=== PATIENT | female | born 1980 | race Caucasian/White ===

== ENCOUNTER → 2021-05-23 | Outpatient (CLI) | payer OTHER ==
[2021-05-26 03:10] LABS: CHLAMYDIA TRACHOMATIS, NAA Negative (Negative)
== END | disposition home or self-care (01) ==
LOC: LAB SHORT 18:38
PROVIDERS: Family Medicine
DX: N76.0 Acute vaginitis (principal)
CPT/HCPCS: 87491; 87591

== ENCOUNTER → 2021-09-20 | Outpatient (CLI) | payer OTHER ==
[2021-09-20 18:34] LABS: BASOPHILS ABSOLUTE AUTO 0.03 K/mm3 (0.00-0.23); BASOPHILS PERCENT AUTO 0 % (0-2); EOSINOPHILS ABSOLUTE AUTO 0.21 K/mm3 (0.00-0.68); EOSINOPHILS PERCENT AUTO 2 % (0-6); Hematocrit 35.7 % (33.0-51.0); Hemoglobin 12.1 g/dL (11.5-16.0); IMMATURE GRAN ABSOLUTE AUTO 0.02 K/mm3 (0.00-0.10); IMMATURE GRAN PERCENT AUTO 0 % (0-1); LYMPHOCYTES ABSOLUTE AUTO 3.46 K/mm3 (0.84-5.20); LYMPHOCYTES PERCENT AUTO 40 % (21-46); MONOCYTES ABSOLUTE AUTO 0.54 K/mm3 (0.16-1.47); MONOCYTES PERCENT AUTO 6 % (4-13); Mean Corpuscular HGB 30.1 pg (26.0-34.0); Mean Corpuscular HGB Conc 33.9 g/dL (31.5-36.5); Mean Corpuscular Volume 89 fL (80-100); Mean Platelet Volume 10.4 fL (9.1-12.4); NEUTROPHILS ABSOLUTE AUTO 4.51 K/mm3 (1.96-9.15); NEUTROPHILS PERCENT AUTO 51 % (41-73); Platelet Count 429 K/mm3 (150-400); RDW Coefficient Variation 13.7 % (11.7-14.2); RDW Standard Deviation 44.6 fL (35.1-46.3); Red Blood Cell Count 4.02 M/mm3 (3.80-5.20); White Blood Cell Count 8.77 K/mm3 (4.00-11.30)
[2021-09-20 18:59] LABS: Anion Gap 8 mmol/L (6-16); Blood Urea Nitrogen 14 mg/dL (8-24); Bun/Creatinine Ratio 24.8 (12.0-20.0); CO2, Blood 27 mmol/L (21-32); Calcium, Blood 9.6 mg/dL (8.5-10.1); Chloride, Blood 103 mmol/L (98-108); Creatinine, Blood 0.57 mg/dL (0.40-1.00); Glomerular Filtration Rate >60 (60-); Glucose, Blood 108 mg/dL (70-99); Iron Serum 24 ug/dL (50-170); Percent Saturation 8.2 % (15.0-50.0); Potassium, Blood 3.7 mmol/L (3.5-5.5); Sodium, Blood 138 mmol/L (136-145); Total Iron Binding Capacity 294 ug/dL (250-450)
== END ==
LOC: LAB SHORT 17:50
PROVIDERS: Physician Assistant
DX: R53.83 Other fatigue (principal)
CPT/HCPCS: 80048; 83540; 83550; 84443; 85025

== ENCOUNTER 2021-11-18 19:05 | Emergency (ER) | payer OTHER ==
[~2021-11-18] VITALS: Ht 165.1 cm; Wt 68.0 kg
[2021-11-18 19:47] LABS: BASOPHILS ABSOLUTE AUTO 0.02 K/mm3 (0.00-0.23); BASOPHILS PERCENT AUTO 0 % (0-2); EOSINOPHILS ABSOLUTE AUTO 0.03 K/mm3 (0.00-0.68); EOSINOPHILS PERCENT AUTO 0 % (0-6); Hemoglobin 12.7 g/dL (11.5-16.0); IMMATURE GRAN ABSOLUTE AUTO 0.04 K/mm3 (0.00-0.10); IMMATURE GRAN PERCENT AUTO 0 % (0-1); LYMPHOCYTES ABSOLUTE AUTO 2.12 K/mm3 (0.84-5.20); LYMPHOCYTES PERCENT AUTO 21 % (21-46); MONOCYTES ABSOLUTE AUTO 0.63 K/mm3 (0.16-1.47); MONOCYTES PERCENT AUTO 6 % (4-13); Mean Corpuscular HGB 29.6 pg (26.0-34.0); Mean Corpuscular HGB Conc 33.4 g/dL (31.5-36.5); Mean Corpuscular Volume 89 fL (80-100); Mean Platelet Volume 10.3 fL (9.1-12.4); NEUTROPHILS ABSOLUTE AUTO 7.39 K/mm3 (1.96-9.15); NEUTROPHILS PERCENT AUTO 72 % (41-73); NRBC ABSOLUTE 0.03 K/mm3 (0.00-0.02); NRBC Auto 0.3 /100 WBC (0.0-0.2); Platelet Count 401 K/mm3 (150-400); RDW Coefficient Variation 13.3 % (11.7-14.2); RDW Standard Deviation 42.9 fL (35.1-46.3); Red Blood Cell Count 4.29 M/mm3 (3.80-5.20); White Blood Cell Count 10.23 K/mm3 (4.00-11.30)
[2021-11-18 20:05] LABS: Alanine Aminotransfer (ALT/SGP 43 U/L (12-78); Albumin, Blood 3.9 g/dL (3.4-5.0); Albumin/Globulin Ratio 1.2 (0.8-1.8); Alk Phos 73 U/L (50-136); Anion Gap 7 mmol/L (6-16); Aspartate Aminotrans (AST/SGOT 47 U/L (12-37); Bilirubin, Total 0.4 mg/dL (0.1-1.0); Blood Urea Nitrogen 8 mg/dL (8-24); Bun/Creatinine Ratio 8.8 (12.0-20.0); CO2, Blood 28 mmol/L (21-32); Calcium, Blood 9.4 mg/dL (8.5-10.1); Chloride, Blood 106 mmol/L (98-108); Creatinine, Blood 0.91 mg/dL (0.40-1.00); Ethanol (Alcohol), Blood, Med <3 mg/dL; Globulin, Blood 3.3 g/dL (2.2-4.0); Glomerular Filtration Rate >60 (60-); Glucose, Blood 127 mg/dL (70-99); Potassium, Blood 3.9 mmol/L (3.5-5.5); Sodium, Blood 141 mmol/L (136-145); Total Protein, Blood 7.2 g/dL (6.4-8.2)
[2021-11-18] MEDS ORDERED: NARCAN4 M1 (21:32)
== END 2021-11-18 22:09 | disposition home or self-care (01) ==
LOC: ER 19:05
PROVIDERS: Emergency Medicine
DX: T40.411A Poisoning by fentanyl or fentanyl analogs, accidental (unintentional), initial encounter (principal)
CPT/HCPCS: 71045; 80053; 84484; 85025; 93005; 93010; 99285-25; G0480

== ENCOUNTER → 2022-02-22 | Outpatient (CLI) | payer OTHER ==
[~2022-02-22] MED LIST: NARCAN4 M1
[2022-02-22 17:23] LABS: BASOPHILS ABSOLUTE AUTO 0.03 K/mm3 (0.00-0.23); BASOPHILS PERCENT AUTO 0 % (0-2); EOSINOPHILS ABSOLUTE AUTO 0.09 K/mm3 (0.00-0.68); EOSINOPHILS PERCENT AUTO 1 % (0-6); Hematocrit 38.2 % (33.0-51.0); Hemoglobin 12.9 g/dL (11.5-16.0); IMMATURE GRAN ABSOLUTE AUTO 0.01 K/mm3 (0.00-0.10); IMMATURE GRAN PERCENT AUTO 0 % (0-1); LYMPHOCYTES PERCENT AUTO 44 % (21-46); MONOCYTES ABSOLUTE AUTO 0.48 K/mm3 (0.16-1.47); MONOCYTES PERCENT AUTO 7 % (4-13); Mean Corpuscular HGB 30.5 pg (26.0-34.0); Mean Corpuscular HGB Conc 33.8 g/dL (31.5-36.5); Mean Corpuscular Volume 90 fL (80-100); Mean Platelet Volume 10.2 fL (9.1-12.4); NEUTROPHILS ABSOLUTE AUTO 3.18 K/mm3 (1.96-9.15); NEUTROPHILS PERCENT AUTO 47 % (41-73); Platelet Count 386 K/mm3 (150-400); RDW Coefficient Variation 14.1 % (11.7-14.2); RDW Standard Deviation 46.8 fL (35.1-46.3); Red Blood Cell Count 4.23 M/mm3 (3.80-5.20); White Blood Cell Count 6.79 K/mm3 (4.00-11.30)
[2022-02-22 17:45] LABS: Alanine Aminotransfer (ALT/SGP 25 U/L (12-78); Albumin/Globulin Ratio 1.2 (0.8-1.8); Alk Phos 64 U/L (50-136); Anion Gap 4 mmol/L (6-16); Aspartate Aminotrans (AST/SGOT 16 U/L (12-37); Bilirubin, Total 0.5 mg/dL (0.1-1.0); Blood Urea Nitrogen 8 mg/dL (8-24); CHOL/HDL RATIO 2.3; CO2, Blood 26 mmol/L (21-32); Calcium, Blood 9.2 mg/dL (8.5-10.1); Chloride, Blood 106 mmol/L (98-108); Cholesterol 160 mg/dL (50-200); Globulin, Blood 3.2 g/dL (2.2-4.0); Glucose, Blood 89 mg/dL (70-99); HDL Cholesterol 71 mg/dL (>39); Iron Serum 123 ug/dL (50-170); LDL/HDL RATIO 1.2; Low Density Lipoprotein Chol 83 mg/dL (0-110); Sodium, Blood 136 mmol/L (136-145); Total Protein, Blood 7.2 g/dL (6.4-8.2); Triglycerides 32 mg/dL (30-140); Very Low Density Lipoprot Chol 6 mg/dL (6-28)
[2022-02-22 17:50] LABS: Bun/Creatinine Ratio 11.8 (12.0-20.0); Creatinine, Blood 0.68 mg/dL (0.40-1.00); Ferritin, Serum 11 ng/mL (8-252); Glomerular Filtration Rate 114 (60-); Percent Saturation 39.2 % (15.0-50.0); Total Iron Binding Capacity 314 ug/dL (250-450)
== END | disposition home or self-care (01) ==
LOC: LAB SHORT 12:00 → LAB 12:00
PROVIDERS: Nurse Practitioner Family
DX: R53.83 Other fatigue (principal)
CPT/HCPCS: 80053; 80061; 82306; 82728; 83036; 83540; 83550; 84443; 85025

== ENCOUNTER 2022-10-24 02:59 | Emergency (ER) | payer OTHER ==
[~2022-10-24] VITALS: Ht 172.7 cm; Wt 72.6 kg
[2022-10-24 05:35] LABS: BASOPHILS ABSOLUTE AUTO 0.04 K/mm3 (0.00-0.23); BASOPHILS PERCENT AUTO 1 % (0-2); EOSINOPHILS ABSOLUTE AUTO 0.29 K/mm3 (0.00-0.68); EOSINOPHILS PERCENT AUTO 3 % (0-6); Hematocrit 33.5 % (33.0-51.0); Hemoglobin 11.1 g/dL (11.5-16.0); IMMATURE GRAN ABSOLUTE AUTO 0.03 K/mm3 (0.00-0.10); IMMATURE GRAN PERCENT AUTO 0 % (0-1); LYMPHOCYTES ABSOLUTE AUTO 2.59 K/mm3 (0.84-5.20); LYMPHOCYTES PERCENT AUTO 31 % (21-46); MONOCYTES ABSOLUTE AUTO 0.64 K/mm3 (0.16-1.47); MONOCYTES PERCENT AUTO 8 % (4-13); Mean Corpuscular HGB 28.2 pg (26.0-34.0); Mean Corpuscular HGB Conc 33.1 g/dL (31.5-36.5); Mean Corpuscular Volume 85 fL (80-100); Mean Platelet Volume 9.6 fL (9.1-12.4); NEUTROPHILS ABSOLUTE AUTO 4.82 K/mm3 (1.96-9.15); NEUTROPHILS PERCENT AUTO 57 % (41-73); Platelet Count 615 K/mm3 (150-400); RDW Coefficient Variation 14.2 % (11.7-14.2); RDW Standard Deviation 44.1 fL (35.1-46.3); Red Blood Cell Count 3.94 M/mm3 (3.80-5.20); White Blood Cell Count 8.41 K/mm3 (4.00-11.30)
[2022-10-24 06:03] LABS: Albumin, Blood 3.3 g/dL (3.4-5.0); Albumin/Globulin Ratio 0.8 (0.8-1.8); Bilirubin, Total 0.3 mg/dL (0.1-1.0); Bun/Creatinine Ratio 27.2 (12.0-20.0); Calcium, Blood 9.1 mg/dL (8.5-10.1); Creatinine, Blood 0.59 mg/dL (0.40-1.00); Globulin, Blood 4.3 g/dL (2.2-4.0); Total Protein, Blood 7.6 g/dL (6.4-8.2)
== END 2022-10-24 05:55 | disposition home or self-care (01) ==
LOC: ER 02:59
PROVIDERS: Student in an Organized Health Care Education/Training Program
DX: R10.9 Unspecified abdominal pain (principal); F17.210 Nicotine dependence, cigarettes, uncomplicated; Z96.0 Presence of urogenital implants
CPT/HCPCS: 36415; 80053; 85025; J3360; J7030

== ENCOUNTER 2023-04-11 15:03 | Emergency (ER) | payer OTHER ==
[~2023-04-11] VITALS: Ht 172.7 cm; Wt 72.6 kg
[2023-04-11 15:47] LABS: BASOPHILS ABSOLUTE AUTO 0.03 K/mm3 (0.00-0.23); BASOPHILS PERCENT AUTO 0 % (0-2); EOSINOPHILS ABSOLUTE AUTO 0.18 K/mm3 (0.00-0.68); EOSINOPHILS PERCENT AUTO 1 % (0-6); Hematocrit 30.6 % (33.0-51.0); Hemoglobin 10.1 g/dL (11.5-16.0); IMMATURE GRAN ABSOLUTE AUTO 0.05 K/mm3 (0.00-0.10); IMMATURE GRAN PERCENT AUTO 0 % (0-1); LYMPHOCYTES ABSOLUTE AUTO 2.15 K/mm3 (0.84-5.20); LYMPHOCYTES PERCENT AUTO 17 % (21-46); MONOCYTES ABSOLUTE AUTO 1.45 K/mm3 (0.16-1.47); MONOCYTES PERCENT AUTO 12 % (4-13); Mean Corpuscular HGB 27.6 pg (26.0-34.0); Mean Corpuscular Volume 84 fL (80-100); NEUTROPHILS PERCENT AUTO 69 % (41-73); Platelet Count 289 K/mm3 (150-400); RDW Coefficient Variation 15.8 % (11.7-14.2); RDW Standard Deviation 48.6 fL (35.1-46.3); Red Blood Cell Count 3.66 M/mm3 (3.80-5.20); White Blood Cell Count 12.46 K/mm3 (4.00-11.30)
[2023-04-11 16:08] LABS: Albumin, Blood 2.9 g/dL (3.4-5.0); Albumin/Globulin Ratio 0.7 (0.8-1.8); Bilirubin, Total 0.3 mg/dL (0.1-1.0); Bun/Creatinine Ratio 14.3 (12.0-20.0); Calcium, Blood 8.8 mg/dL (8.5-10.1); Creatinine, Blood 0.7 mg/dL (0.40-1.00); Globulin, Blood 3.9 g/dL (2.2-4.0); Potassium, Blood 3.2 mmol/L (3.5-5.5); Total Protein, Blood 6.8 g/dL (6.4-8.2)
[2023-04-11 18:31] LABS: Source, Urine Clean Catch
[2023-04-11] MEDS ORDERED: CEFD300 PO (18:47)
[2023-04-11 18:52] LABS: Appearance, Urine Cloudy (Clear); Bilirubin, Urine Neg (Neg); Blood, Urine 3+ (Neg); Color, Urine Yellow (P-Yellow); Glucose Qualitative, Urine Neg (Neg); Ketones, Urine Neg (Neg); Leukocyte Esterase, Urine 3+ (Neg); Nitrite, Urine Pos (Neg); Protein, Urine 2+ (Neg); Specific Gravity, Urine 1.015 (1.003-1.022); Urobilinogen, Urine NORM (Normal)
[2023-04-11 19:03] LABS: Bacteria Many /hpf; Squamous Epithelial Cells Rare /hpf (Few); Transitional Epithelial Cells Rare /hpf (0-Rare); White Blood Cells, Urine TNTC /hpf (0-5)
[2023-04-11 19:10] VITALS: BP 124/49
== END 2023-04-11 19:30 | disposition home or self-care (01) ==
LOC: ER 15:03
PROVIDERS: Physician Assistant
DX: N12 Tubulo-interstitial nephritis, not specified as acute or chronic (principal); F17.210 Nicotine dependence, cigarettes, uncomplicated; Z79.899 Other long term (current) drug therapy
CPT/HCPCS: 74177; 80053; 81001; 85025; 87086; 87147; 96374; 99284-25; A9270; J0696; Q9967

== ENCOUNTER 2023-05-23 10:56 | Inpatient (IN) | payer OTHER ==
[~2023-05-23] VITALS: Ht 172.7 cm; Wt 75.5 kg
[~2023-05-23 10:56] MED LIST changes: +CEFD300 PO
[2023-05-23 12:29] LABS: Source, Urine Clean Catch
[2023-05-23 12:40] LABS: Appearance, Urine Cloudy (Clear); Bilirubin, Urine Neg (Neg); Blood, Urine 5+ (Neg); Color, Urine Yellow (P-Yellow); Glucose Qualitative, Urine Neg (Neg); Ketones, Urine Neg (Neg); Leukocyte Esterase, Urine 3+ (Neg); Nitrite, Urine Pos (Neg); Protein, Urine 3+ (Neg); Specific Gravity, Urine 1.015 (1.003-1.022); Urobilinogen, Urine NORM (Normal)
[2023-05-23 12:48] LABS: Bacteria Many /hpf; Red Blood Cells, Urine 50-100 /hpf (0-2); Squamous Epithelial Cells Rare /hpf (Few); White Blood Cells, Urine TNTC /hpf (0-5)
[2023-05-23 13:10] LABS: BASOPHILS ABSOLUTE AUTO 0.03 K/mm3 (0.00-0.23); BASOPHILS PERCENT AUTO 0 % (0-2); EOSINOPHILS ABSOLUTE AUTO 0.18 K/mm3 (0.00-0.68); EOSINOPHILS PERCENT AUTO 2 % (0-6); Hematocrit 33.1 % (33.0-51.0); Hemoglobin 10.7 g/dL (11.5-16.0); IMMATURE GRAN ABSOLUTE AUTO 0.03 K/mm3 (0.00-0.10); IMMATURE GRAN PERCENT AUTO 0 % (0-1); LYMPHOCYTES ABSOLUTE AUTO 2.71 K/mm3 (0.84-5.20); LYMPHOCYTES PERCENT AUTO 33 % (21-46); MONOCYTES ABSOLUTE AUTO 0.36 K/mm3 (0.16-1.47); MONOCYTES PERCENT AUTO 4 % (4-13); Mean Corpuscular HGB 27.9 pg (26.0-34.0); Mean Corpuscular HGB Conc 32.3 g/dL (31.5-36.5); Mean Corpuscular Volume 86 fL (80-100); NEUTROPHILS ABSOLUTE AUTO 4.98 K/mm3 (1.96-9.15); NEUTROPHILS PERCENT AUTO 60 % (41-73); Platelet Count 392 K/mm3 (150-400); RDW Coefficient Variation 15.2 % (11.7-14.2); RDW Standard Deviation 48.3 fL (35.1-46.3); Red Blood Cell Count 3.83 M/mm3 (3.80-5.20); White Blood Cell Count 8.29 K/mm3 (4.00-11.30)
[2023-05-23 13:34] LABS: Calcium, Blood 8.6 mg/dL (8.5-10.1); Creatinine, Blood 0.71 mg/dL (0.40-1.00); Potassium, Blood 3.9 mmol/L (3.5-5.5)
[2023-05-23 19:20] VITALS: BP 145/84
[2023-05-23 19:37] LABS: Hematocrit 33.3 % (33.0-51.0); Hemoglobin 10.7 g/dL (11.5-16.0); Mean Corpuscular HGB 27.9 pg (26.0-34.0); Mean Corpuscular HGB Conc 32.1 g/dL (31.5-36.5); Mean Corpuscular Volume 87 fL (80-100); Platelet Count 398 K/mm3 (150-400); RDW Coefficient Variation 15.5 % (11.7-14.2); Red Blood Cell Count 3.84 M/mm3 (3.80-5.20); White Blood Cell Count 7.81 K/mm3 (4.00-11.30)
[2023-05-23 19:43] VITALS: BP 145/84
[2023-05-23 22:42] LABS: Source, Urine Nephrostomy
[2023-05-23 23:01] LABS: Appearance, Urine Turbid (Clear); Bilirubin, Urine Neg (Neg); Blood, Urine 5+ (Neg); Color, Urine Red (P-Yellow); Glucose Qualitative, Urine Neg (Neg); Ketones, Urine 1+ (Neg); Leukocyte Esterase, Urine 3+ (Neg); Nitrite, Urine Neg (Neg); Protein, Urine 4+ (Neg); Urobilinogen, Urine NORM (Normal); pH, Urine 6.5 (5.0-8.0)
[2023-05-23 23:23] LABS: Bacteria Few /hpf; Red Blood Cells, Urine TNTC /hpf (0-2); Squamous Epithelial Cells Not Seen /hpf (Few); White Blood Cells, Urine 25-50 /hpf (0-5)
[2023-05-24 03:12] VITALS: BP 133/78
[2023-05-24 04:42] VITALS: BP 124/73
[2023-05-24 05:12] LABS: Hematocrit 28.6 % (33.0-51.0); Hemoglobin 9.3 g/dL (11.5-16.0); Mean Corpuscular HGB 28.4 pg (26.0-34.0); Mean Corpuscular HGB Conc 32.5 g/dL (31.5-36.5); Mean Corpuscular Volume 88 fL (80-100); Mean Platelet Volume 10.3 fL (9.1-12.4); Platelet Count 324 K/mm3 (150-400); RDW Coefficient Variation 15.6 % (11.7-14.2); RDW Standard Deviation 50.2 fL (35.1-46.3); Red Blood Cell Count 3.27 M/mm3 (3.80-5.20); White Blood Cell Count 9.18 K/mm3 (4.00-11.30)
--- NOTE | 2023-05-24 05:14 | NUR ---
SUMMARY PT ADMITTED FOR NEPHROSTOMY TUBE PLACEMENT, PT ARRIVED RIGHT AT SHIFT CHANGE, PT ALERT AND ORIENTED, INDEPENDENT IN THE ROOM, ORIENTED PT TO ROOM AND CALL SYSTEM, PT CRYING IN PAIN UPON ARRIVAL, MED PER EMAR FOR PAIN AND NAUSEA, PT WITH INCREASING PAIN T/O THE NIGHT, CALL TO ATTENDING AND NEW ORDERS RECIEVED, PT MED T/O THE NIGHT FOR PAIN, HEATING PAD PROVIDED WELL, NEPHROSTOMY TUBE TO R FLANK, SITE IS DRY AND INTACT, DRAINAGE IS MAROON TO LIGHT PINK, PT WITH HIGH ANXIETY, PT'S SPOUSE STAYED AND ASSISTED WITH DECREASING PT'S ANXIETY, VSS, WILL CONTINUE TO MONITOR
[2023-05-24 05:38] LABS: Bun/Creatinine Ratio 16.5 (12.0-20.0); Calcium, Blood 8.2 mg/dL (8.5-10.1); Creatinine, Blood 0.79 mg/dL (0.40-1.00); Potassium, Blood 3.6 mmol/L (3.5-5.5)
[2023-05-24 09:40] LABS: Source, Urine Clean Catch
[2023-05-24 10:01] LABS: Appearance, Urine Cloudy (Clear); Bilirubin, Urine Neg (Neg); Blood, Urine 5+ (Neg); Color, Urine Yellow (P-Yellow); Glucose Qualitative, Urine Neg (Neg); Ketones, Urine Neg (Neg); Leukocyte Esterase, Urine 3+ (Neg); Nitrite, Urine Pos (Neg); Protein, Urine 3+ (Neg); Specific Gravity, Urine 1.025 (1.003-1.022); Urobilinogen, Urine NORM (Normal)
[2023-05-24 10:09] LABS: Bacteria Many /hpf; Red Blood Cells, Urine 25-50 /hpf (0-2); Squamous Epithelial Cells Few /hpf (Few); White Blood Cells, Urine TNTC /hpf (0-5)
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
--- NOTE | 2023-05-24 14:26 | NUR ---
11:20- PT HAS BEEN MISSING FROM THE FLOOR FOR 20 MINUTES NOW. ALL CHARGE NURSES AND CC NOTIFIED.
--- NOTE | 2023-05-24 14:27 | NUR ---
11:25- PT CAME BACK TO THE FLOOR. PT WOULD NOT ANSWER WHERE SHE HAD GONE. THIS RN AND PATRICIA WENT TO PT'S ROOM TO TELL HER SHE WAS CONSIDERED A HIGH RISK AND REQUIRED A 1:1 SITTER NOW. PT BECAME EXTREMELY AGGITATED AND STARTED SCREAMING AT STAFF. PT WAS CURSING AND STATED SHE WANTED TO LEAVE AMA IF SHE WAS GOING TO HAVE A PREPARATION ROOM WORKER. NANCY NOTIFIED AND NANCY SPOKE WITH PT INFORMING HER OF HOSPITAL NO SMOKING POLICY. PT DECIDED TO STAY WITH A SITTER AND STATED, "I CAN'T LEAVE I NEED MY PAIN MEDS." NANCY STAYED WITH PT UNTIL SITTER CAME TO FLOOR.
[2023-05-24 15:28] VITALS: BP 163/94
--- NOTE | 2023-05-24 18:12 | NUR ---
1700- RN EDUCATED PT THAT IF SHE LEFT THE FLOOR TO SMOKE WITH A SITTER THAT WOULD BE CONSIDERED LEAVING AMA DUE TO PUTTING THE SITTER IN DANGER. PT GAVE VERBAL UNDERSTANDING OF EDUCATION ALTHOUGH PT WAS IRRITATED AT THIS INFORMATION GIVEN.
--- NOTE | 2023-05-24 18:14 | NUR ---
1809- THIS RN CALLED DR. BROWN AND INFORMED HER THAT PT BELIEVES, "SOMETHING IS NOT RIGHT." PT HAS COMPLAINTS THAT HER ABDOMEN IS SWOLLEN, RIGHT UPPER AND LOWER FLANK PAIN RADIATING TO THE FRONT RIGHT QUADRANTS, AND PT HAS SCANT BLOOD AFTER SHE WIPES PT EXAPLINS. PT HAS BSX4, BLOOD LOOKS NORMAL FOR POST NEPH TUBE PLACEMENT, AND PAIN EXPECTED WELL. DR. CASAREZ ALSO INFORMED OF PT'S COMPLAINTS. BOTH MDS SAID TO CONTINUE TO MONITOR. DR. BROWN GAVE VERBAL TO ORDER COLACE 100MG BID.
[2023-05-24 19:44] VITALS: BP 122/70
[2023-05-25 03:01] VITALS: BP 108/67
--- NOTE | 2023-05-25 05:01 | NUR ---
SUMMARY PT RESTING QUIETLY, WAKES EASILY, UP INDEP IN THE ROOM, PT MED PER EMAR FOR PAIN FREQUENTLY, 1:[address] FOR HIGH IGNITION RISK, PT VERY TALKATIVE AND EMOTIONAL AT THE START OF THE SHIFT, COOPERATIVE WITH CARE, NEPHROSTOMY TUBE TO THE R FLANK, SITE IS CLEAN AND DRY, DRAINING PINK URINE, VSS, WILL CONT TO MONITOR
[2023-05-25 06:04] LABS: BASOPHILS ABSOLUTE AUTO 0.02 K/mm3 (0.00-0.23); BASOPHILS PERCENT AUTO 0 % (0-2); EOSINOPHILS PERCENT AUTO 3 % (0-6); Hematocrit 30.5 % (33.0-51.0); Hemoglobin 9.6 g/dL (11.5-16.0); IMMATURE GRAN ABSOLUTE AUTO 0.03 K/mm3 (0.00-0.10); IMMATURE GRAN PERCENT AUTO 0 % (0-1); LYMPHOCYTES ABSOLUTE AUTO 2.99 K/mm3 (0.84-5.20); LYMPHOCYTES PERCENT AUTO 37 % (21-46); MONOCYTES ABSOLUTE AUTO 0.67 K/mm3 (0.16-1.47); MONOCYTES PERCENT AUTO 8 % (4-13); Mean Corpuscular HGB 27.9 pg (26.0-34.0); Mean Corpuscular HGB Conc 31.5 g/dL (31.5-36.5); Mean Corpuscular Volume 89 fL (80-100); Mean Platelet Volume 10.2 fL (9.1-12.4); NEUTROPHILS ABSOLUTE AUTO 4.17 K/mm3 (1.96-9.15); NEUTROPHILS PERCENT AUTO 52 % (41-73); Platelet Count 333 K/mm3 (150-400); RDW Coefficient Variation 15.7 % (11.7-14.2); RDW Standard Deviation 50.8 fL (35.1-46.3); Red Blood Cell Count 3.44 M/mm3 (3.80-5.20); White Blood Cell Count 8.08 K/mm3 (4.00-11.30)
[2023-05-25 06:33] LABS: Anion Gap 4 mmol/L (6-16); Blood Urea Nitrogen 16 mg/dL (8-24); Bun/Creatinine Ratio 19.2 (12.0-20.0); CO2, Blood 27 mmol/L (21-32); Calcium, Blood 8.7 mg/dL (8.5-10.1); Chloride, Blood 110 mmol/L (98-108); Creatinine, Blood 0.83 mg/dL (0.40-1.00); Glomerular Filtration Rate 91 (60-); Glucose, Blood 104 mg/dL (70-99); Phosphorus, Blood 4.2 mg/dL (2.5-4.9); Potassium, Blood 4.3 mmol/L (3.5-5.5); Sodium, Blood 141 mmol/L (136-145)
[2023-05-25 07:30] VITALS: BP 117/71
[2023-05-25] MEDS ORDERED: DOCU100 PO ×2 (09:36)
[2023-05-25] MEDS ORDERED: MIRALAX17 GM PO ×2 (09:37)
[2023-05-25] MEDS ORDERED: PROBIOTIC ACID1 EAC7 PO ×2 (09:38)
[2023-05-25] MEDS ORDERED: CEPH500 PO ×2 (09:39)
[2023-05-25] MEDS ORDERED: TRAM50 PO ×2 (09:40)
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
== END 2023-05-25 11:34 | disposition home or self-care (01) | DRG 699 ==
LOC: ER 10:56 → SURS 10:57 → MEDS 16:34 → ENPENDDIS 05-25 09:02 → MEDS 05-25 11:34
PROVIDERS: Family Medicine; Internal Medicine; Physician Assistant; Student in an Organized Health Care Education/Training Program; ADMIT Radiology Diagnostic Radiology
PROC: 0T9330Z Drainage of Right Kidney Pelvis with Drainage Device, Percutaneous Approach (ICD-10-PCS; principal; 2023-05-23)
PROC: BT41ZZZ Ultrasonography of Right Kidney (ICD-10-PCS; 2023-05-23)
PROC: BT111ZZ Fluoroscopy of Right Kidney using Low Osmolar Contrast (ICD-10-PCS; 2023-05-23)
DX: T83.592A Infection and inflammatory reaction due to indwelling ureteral stent, initial encounter (principal); N13.6 Pyonephrosis; T83.112A Breakdown (mechanical) of indwelling ureteral stent, initial encounter; T83.85XA Stenosis due to genitourinary prosthetic devices, implants and grafts, initial encounter; Y83.8 Other surgical procedures as the cause of abnormal reaction of the patient, or of later complication, without mention of misadventure at the time of the procedure; F17.210 Nicotine dependence, cigarettes, uncomplicated; I10 Essential (primary) hypertension; R31.9 Hematuria, unspecified; K59.00 Constipation, unspecified; F41.9 Anxiety disorder, unspecified; Z88.8 Allergy status to other drugs, medicaments and biological substances; Z91.018 Allergy to other foods; Z87.442 Personal history of urinary calculi; Z90.49 Acquired absence of other specified parts of digestive tract; B95.4 Other streptococcus as the cause of diseases classified elsewhere
CPT/HCPCS: 36415; 74177; 76770; 76937; 80048; 80069; 81001; 85025; 85027; 87086; 96361; 96365-59; 96366; 96372-59; 96375; 96376; 99152; 99153; 99285-25; A9270; C1769; C1894; J0696; J1170; J1885; J2250; J2270; J2405; J3010; J7030; J7040; Q9967

== ENCOUNTER 2023-05-26 08:20 | Emergency (ER) | payer OTHER ==
[~2023-05-26] VITALS: Ht 172.7 cm; Wt 74.4 kg
[~2023-05-26 08:20] MED LIST changes: +CEPH500 PO; +DOCU100 PO; +MIRALAX17 GM PO; +PROBIOTIC ACID1 EAC7 PO; +TRAM50 PO
[2023-05-26 10:20] VITALS: BP 127/69
== END 2023-05-26 10:28 | disposition home or self-care (01) ==
LOC: ER 08:20
DX: N39.0 Urinary tract infection, site not specified (principal); K59.00 Constipation, unspecified; F17.210 Nicotine dependence, cigarettes, uncomplicated; Z88.6 Allergy status to analgesic agent; Z88.8 Allergy status to other drugs, medicaments and biological substances; Z91.018 Allergy to other foods
CPT/HCPCS: 96365; 96375; 99283-25; A9270; J0696; J1885; J2405; J3010

== ENCOUNTER 2023-05-28 16:18 | Emergency (ER) | payer OTHER ==
[~2023-05-28] VITALS: Ht 172.7 cm; Wt 72.6 kg
[2023-05-28 16:57] LABS: BASOPHILS ABSOLUTE AUTO 0.02 K/mm3 (0.00-0.23); BASOPHILS PERCENT AUTO 0 % (0-2); EOSINOPHILS ABSOLUTE AUTO 0.15 K/mm3 (0.00-0.68); EOSINOPHILS PERCENT AUTO 1 % (0-6); Hemoglobin 11.4 g/dL (11.5-16.0); IMMATURE GRAN ABSOLUTE AUTO 0.03 K/mm3 (0.00-0.10); IMMATURE GRAN PERCENT AUTO 0 % (0-1); LYMPHOCYTES ABSOLUTE AUTO 2.34 K/mm3 (0.84-5.20); LYMPHOCYTES PERCENT AUTO 17 % (21-46); MONOCYTES ABSOLUTE AUTO 0.66 K/mm3 (0.16-1.47); MONOCYTES PERCENT AUTO 5 % (4-13); Mean Corpuscular HGB 28.1 pg (26.0-34.0); Mean Corpuscular HGB Conc 32.6 g/dL (31.5-36.5); Mean Corpuscular Volume 86 fL (80-100); Mean Platelet Volume 9.8 fL (9.1-12.4); NEUTROPHILS ABSOLUTE AUTO 10.47 K/mm3 (1.96-9.15); NEUTROPHILS PERCENT AUTO 77 % (41-73); Platelet Count 537 K/mm3 (150-400); RDW Coefficient Variation 15.4 % (11.7-14.2); RDW Standard Deviation 48.4 fL (35.1-46.3); Red Blood Cell Count 4.06 M/mm3 (3.80-5.20); White Blood Cell Count 13.67 K/mm3 (4.00-11.30)
[2023-05-28 17:04] LABS: Source, Urine Clean Catch
[2023-05-28 17:23] LABS: Appearance, Urine Hazy (Clear); Bilirubin, Urine Neg (Neg); Blood, Urine 4+ (Neg); Color, Urine Yellow (P-Yellow); Glucose Qualitative, Urine Neg (Neg); Ketones, Urine Neg (Neg); Leukocyte Esterase, Urine 3+ (Neg); Nitrite, Urine Neg (Neg); Protein, Urine 2+ (Neg); Urobilinogen, Urine NORM (Normal)
[2023-05-28 17:27] LABS: Albumin, Blood 4.4 g/dL (3.4-5.0); Albumin/Globulin Ratio 1.5 (0.8-1.8); Bilirubin, Total 0.3 mg/dL (0.1-1.0); Bun/Creatinine Ratio 16.7 (12.0-20.0); Creatinine, Blood 0.66 mg/dL (0.40-1.00); Potassium, Blood 3.7 mmol/L (3.5-5.5); Total Protein, Blood 7.4 g/dL (6.4-8.2)
[2023-05-28 18:06] LABS: Bacteria Many /hpf; Mucus Light (0-Heavy); Red Blood Cells, Urine 50-100 /hpf (0-2); Squamous Epithelial Cells Mod /hpf (Few); White Blood Cells, Urine TNTC /hpf (0-5)
[2023-05-28 18:12] LABS: Trichomonas Rare /hpf
[2023-05-28 22:00] VITALS: BP 131/66
[2023-05-28 22:24] LABS: Source, Urine Straight Cath
[2023-05-28 22:27] LABS: Bilirubin, Urine Neg (Neg); Blood, Urine 4+ (Neg); Glucose Qualitative, Urine Neg (Neg); Ketones, Urine Neg (Neg); Leukocyte Esterase, Urine 3+ (Neg); Nitrite, Urine Neg (Neg); Protein, Urine 3+ (Neg); Urobilinogen, Urine NORM (Normal); pH, Urine 6.5 (5.0-8.0)
[2023-05-28 22:28] LABS: Appearance, Urine Hazy (Clear); Color, Urine Yellow (P-Yellow)
[2023-05-28 22:34] LABS: Bacteria Mod /hpf; Mucus Light (0-Heavy); Squamous Epithelial Cells Few /hpf (Few); White Blood Cells, Urine 50-100 /hpf (0-5)
[2023-05-29] MEDS ORDERED: TRAM50 PO (10:56)
== END 2023-05-29 11:10 | disposition home or self-care (01) ==
LOC: ER 16:18
PROVIDERS: Physician Assistant; Student in an Organized Health Care Education/Training Program
DX: N12 Tubulo-interstitial nephritis, not specified as acute or chronic (principal); F17.200 Nicotine dependence, unspecified, uncomplicated; Z88.6 Allergy status to analgesic agent; Z88.8 Allergy status to other drugs, medicaments and biological substances; Z79.899 Other long term (current) drug therapy
CPT/HCPCS: 74177; 80053; 81001; 82947; 83690; 85025; 87086; 96361; 96365; 96375; 96376; 99284-25; J0696; J1885; J2270; J2405; J7030; Q9967

== ENCOUNTER 2023-06-04 14:39 | Emergency (ER) | payer OTHER ==
[~2023-06-04] VITALS: Ht 170.2 cm; Wt 63.5 kg
[~2023-06-04 14:39] MED LIST changes: -BUPRENORPHINE-1 EACH SL; -METH5; -SUBOXONE 8 MG-1 EACH SL
[2023-06-04 14:45] VITALS: BP 155/100
[2023-06-04] MEDS ORDERED: SUBOXONE 8 MG-1 EACH SL (14:52)
[2023-06-05] MEDS ORDERED: BUPRENORPHINE-1 EACH SL (01:23)
[2023-06-05] MEDS ORDERED: METH5 (01:23)
== END 2023-06-04 14:53 | disposition home or self-care (01) ==
LOC: ER 14:39
DX: F11.90 Opioid use, unspecified, uncomplicated (principal); F17.200 Nicotine dependence, unspecified, uncomplicated; Z79.899 Other long term (current) drug therapy; Z88.6 Allergy status to analgesic agent; Z88.8 Allergy status to other drugs, medicaments and biological substances; Z91.018 Allergy to other foods
CPT/HCPCS: 99283; A9270

== ENCOUNTER → 2023-06-04 | Outpatient (CLI) | payer OTHER ==
[~2023-06-04] MED LIST changes: +BUPRENORPHINE-1 EACH SL; +METH5; +SUBOXONE 8 MG-1 EACH SL
[2023-06-06 01:10] LABS: CHLAMYDIA TRACHOMATIS, NAA Negative (Negative)
== END ==
LOC: LAB SHORT 11:30 → LAB 11:30
PROVIDERS: Family Medicine
DX: Z11.3 Encounter for screening for infections with a predominantly sexual mode of transmission (principal)
CPT/HCPCS: 87491; 87591

== ENCOUNTER 2023-06-05 01:14 | Emergency (ER) | payer OTHER ==
[~2023-06-05] VITALS: Ht 172.7 cm; Wt 72.6 kg
[~2023-06-05 01:14] MED LIST changes: +SUBOXONE 8 MG-1 EACH SL
[2023-06-05] MEDS ORDERED: BUPRENORPHINE-1 EACH SL (01:23)
[2023-06-05] MEDS ORDERED: METH5 (01:23)
[2023-06-05 01:50] VITALS: BP 132/89
== END 2023-06-05 02:15 | disposition home or self-care (01) ==
LOC: ER 01:14
DX: Z43.6 Encounter for attention to other artificial openings of urinary tract (principal); F17.200 Nicotine dependence, unspecified, uncomplicated
CPT/HCPCS: 99283

== ENCOUNTER 2023-06-05 18:56 | Emergency (ER) | payer OTHER ==
[~2023-06-05] VITALS: Ht 172.7 cm; Wt 72.6 kg
[~2023-06-05 18:56] MED LIST changes: +BUPRENORPHINE-1 EACH SL; +METH5
[2023-06-05 19:14] VITALS: BP 129/84
[2023-06-05 19:39] LABS: BASOPHILS ABSOLUTE AUTO 0.04 K/mm3 (0.00-0.23); BASOPHILS PERCENT AUTO 0 % (0-2); EOSINOPHILS ABSOLUTE AUTO 0.45 K/mm3 (0.00-0.68); EOSINOPHILS PERCENT AUTO 5 % (0-6); Hematocrit 31.5 % (33.0-51.0); Hemoglobin 10.5 g/dL (11.5-16.0); IMMATURE GRAN ABSOLUTE AUTO 0.03 K/mm3 (0.00-0.10); IMMATURE GRAN PERCENT AUTO 0 % (0-1); LYMPHOCYTES ABSOLUTE AUTO 3.57 K/mm3 (0.84-5.20); LYMPHOCYTES PERCENT AUTO 37 % (21-46); MONOCYTES ABSOLUTE AUTO 0.72 K/mm3 (0.16-1.47); MONOCYTES PERCENT AUTO 8 % (4-13); Mean Corpuscular HGB 28.6 pg (26.0-34.0); Mean Corpuscular HGB Conc 33.3 g/dL (31.5-36.5); Mean Corpuscular Volume 86 fL (80-100); Mean Platelet Volume 9.9 fL (9.1-12.4); NEUTROPHILS ABSOLUTE AUTO 4.79 K/mm3 (1.96-9.15); NEUTROPHILS PERCENT AUTO 50 % (41-73); Platelet Count 467 K/mm3 (150-400); RDW Coefficient Variation 14.4 % (11.7-14.2); RDW Standard Deviation 45.7 fL (35.1-46.3); Red Blood Cell Count 3.67 M/mm3 (3.80-5.20)
[2023-06-05 20:19] LABS: Influenza A, PCR NEGATIVE (NEGATIVE); Influenza B, PCR NEGATIVE (NEGATIVE); Resp Syncytial Virus, PCR NEGATIVE (NEGATIVE); SARS-Cov-2 (COVID-19) PCR, MMC NEGATIVE (NEGATIVE)
== END 2023-06-05 20:57 | disposition left against medical advice (07) ==
LOC: ER 18:56
PROVIDERS: Student in an Organized Health Care Education/Training Program
DX: R07.9 Chest pain, unspecified (principal); R51.9 Headache, unspecified; Z53.21 Procedure and treatment not carried out due to patient leaving prior to being seen by health care provider
CPT/HCPCS: 0241U; 71046; 83690; 84484; 85025; 93005; 93010; 99283-25

== ENCOUNTER 2023-06-17 10:52 | Emergency (ER) | payer OTHER ==
[~2023-06-17] VITALS: Ht 172.7 cm; Wt 72.6 kg
[2023-06-17] MEDS ORDERED: PREGABALIN75 MG PO (11:00)
[2023-06-17] MEDS ORDERED: OXYB5 PO (11:00)
[2023-06-17] MEDS ORDERED: TAMSULOSIN HCL0.4 M1 PO (11:01)
[2023-06-17 11:29] LABS: BASOPHILS ABSOLUTE AUTO 0.03 K/mm3 (0.00-0.23); BASOPHILS PERCENT AUTO 1 % (0-2); EOSINOPHILS PERCENT AUTO 4 % (0-6); Hematocrit 32.1 % (33.0-51.0); Hemoglobin 10.5 g/dL (11.5-16.0); IMMATURE GRAN ABSOLUTE AUTO 0.01 K/mm3 (0.00-0.10); IMMATURE GRAN PERCENT AUTO 0 % (0-1); LYMPHOCYTES ABSOLUTE AUTO 1.79 K/mm3 (0.84-5.20); LYMPHOCYTES PERCENT AUTO 35 % (21-46); MONOCYTES ABSOLUTE AUTO 0.47 K/mm3 (0.16-1.47); MONOCYTES PERCENT AUTO 9 % (4-13); Mean Corpuscular HGB 27.9 pg (26.0-34.0); Mean Corpuscular HGB Conc 32.7 g/dL (31.5-36.5); Mean Corpuscular Volume 85 fL (80-100); Mean Platelet Volume 10.4 fL (9.1-12.4); NEUTROPHILS ABSOLUTE AUTO 2.59 K/mm3 (1.96-9.15); NEUTROPHILS PERCENT AUTO 51 % (41-73); Platelet Count 383 K/mm3 (150-400); RDW Coefficient Variation 14.1 % (11.7-14.2); RDW Standard Deviation 44.1 fL (35.1-46.3); Red Blood Cell Count 3.76 M/mm3 (3.80-5.20); White Blood Cell Count 5.09 K/mm3 (4.00-11.30)
[2023-06-17 11:38] LABS: Calcium, Blood 8.6 mg/dL (8.5-10.1); Creatinine, Blood 0.71 mg/dL (0.40-1.00); Potassium, Blood 4.3 mmol/L (3.5-5.5)
[2023-06-17 14:00] VITALS: BP 144/84
[2023-06-17] MEDS ORDERED: Percocet 5-3251 EACH PO (14:03)
[2023-06-17] MEDS ORDERED: Cipro250 MG PO (14:03)
[2023-06-17] MEDS ORDERED: PROM25 PO (14:03)
== END 2023-06-17 14:15 | disposition home or self-care (01) ==
LOC: ER 10:52
PROVIDERS: Emergency Medicine
DX: T83.89XA Other specified complication of genitourinary prosthetic devices, implants and grafts, initial encounter (principal); N21.0 Calculus in bladder; N13.30 Unspecified hydronephrosis; F17.200 Nicotine dependence, unspecified, uncomplicated; Z88.8 Allergy status to other drugs, medicaments and biological substances; Z79.899 Other long term (current) drug therapy
CPT/HCPCS: 74018; 76770; 80048; 85025; 96361; 96374; 96375; 96376; 99284-25; A9270; J1170; J2405; J7030

== ENCOUNTER 2023-06-18 21:57 | Emergency (ER) | payer OTHER ==
[~2023-06-18] VITALS: Ht 172.7 cm; Wt 74.8 kg
[~2023-06-18 21:57] MED LIST changes: +Cipro250 MG PO; +OXYB5 PO; +PREGABALIN75 MG PO; +PROM25 PO; +Percocet 5-3251 EACH PO; +TAMSULOSIN HCL0.4 M1 PO
[2023-06-18 22:14] LABS: BASOPHILS ABSOLUTE AUTO 0.03 K/mm3 (0.00-0.23); BASOPHILS PERCENT AUTO 0 % (0-2); EOSINOPHILS ABSOLUTE AUTO 0.27 K/mm3 (0.00-0.68); EOSINOPHILS PERCENT AUTO 4 % (0-6); Hematocrit 28.6 % (33.0-51.0); Hemoglobin 9.5 g/dL (11.5-16.0); IMMATURE GRAN ABSOLUTE AUTO 0.02 K/mm3 (0.00-0.10); IMMATURE GRAN PERCENT AUTO 0 % (0-1); LYMPHOCYTES ABSOLUTE AUTO 2.19 K/mm3 (0.84-5.20); LYMPHOCYTES PERCENT AUTO 29 % (21-46); MONOCYTES ABSOLUTE AUTO 0.85 K/mm3 (0.16-1.47); MONOCYTES PERCENT AUTO 11 % (4-13); Mean Corpuscular HGB 28.1 pg (26.0-34.0); Mean Corpuscular HGB Conc 33.2 g/dL (31.5-36.5); Mean Corpuscular Volume 85 fL (80-100); Mean Platelet Volume 10.1 fL (9.1-12.4); NEUTROPHILS ABSOLUTE AUTO 4.11 K/mm3 (1.96-9.15); NEUTROPHILS PERCENT AUTO 55 % (41-73); Platelet Count 308 K/mm3 (150-400); RDW Coefficient Variation 14.2 % (11.7-14.2); RDW Standard Deviation 43.8 fL (35.1-46.3); Red Blood Cell Count 3.38 M/mm3 (3.80-5.20); White Blood Cell Count 7.47 K/mm3 (4.00-11.30)
[2023-06-18 22:37] LABS: Albumin, Blood 3.1 g/dL (3.4-5.0); Albumin/Globulin Ratio 0.9 (0.8-1.8); Bilirubin, Total 0.2 mg/dL (0.1-1.0); Bun/Creatinine Ratio 18.3 (12.0-20.0); Calcium, Blood 8.5 mg/dL (8.5-10.1); Creatinine, Blood 0.88 mg/dL (0.40-1.00); Globulin, Blood 3.5 g/dL (2.2-4.0); Potassium, Blood 3.8 mmol/L (3.5-5.5); Total Protein, Blood 6.6 g/dL (6.4-8.2)
[2023-06-19 00:08] LABS: Source, Urine Clean Catch
[2023-06-19 00:10] LABS: Bilirubin, Urine Neg (Neg); Blood, Urine 4+ (Neg); Glucose Qualitative, Urine Neg (Neg); Ketones, Urine Neg (Neg); Leukocyte Esterase, Urine 3+ (Neg); Nitrite, Urine Neg (Neg); Protein, Urine 2+ (Neg); Specific Gravity, Urine 1.005 (1.003-1.022); Urobilinogen, Urine NORM (Normal)
[2023-06-19 00:18] LABS: Influenza A, PCR NEGATIVE (NEGATIVE); Influenza B, PCR NEGATIVE (NEGATIVE); Resp Syncytial Virus, PCR NEGATIVE (NEGATIVE); SARS-Cov-2 (COVID-19) PCR, MMC NEGATIVE (NEGATIVE)
[2023-06-19 02:03] LABS: Appearance, Urine Hazy (Clear); Color, Urine Pale Yellow (P-Yellow)
[2023-06-19 02:04] LABS: Bacteria Many /hpf; Squamous Epithelial Cells Few /hpf (Few); White Blood Cells, Urine 25-50 /hpf (0-5)
[2023-06-19 10:28] VITALS: BP 120/70
[2023-06-19] MEDS ORDERED: LIDO700A20 TOP (11:32)
== END 2023-06-19 11:42 | disposition home or self-care (01) ==
LOC: ER 21:57
PROVIDERS: Emergency Medicine; Student in an Organized Health Care Education/Training Program
DX: N28.89 Other specified disorders of kidney and ureter (principal); N83.8 Other noninflammatory disorders of ovary, fallopian tube and broad ligament; D64.9 Anemia, unspecified; F17.200 Nicotine dependence, unspecified, uncomplicated; Z93.6 Other artificial openings of urinary tract status; Z11.52 Encounter for screening for COVID-19; Z88.8 Allergy status to other drugs, medicaments and biological substances; Z79.899 Other long term (current) drug therapy; Z87.442 Personal history of urinary calculi
CPT/HCPCS: 0241U; 74177; 76830; 76856; 80053; 81001; 81025; 82728; 83540; 83550; 84145; 85025; 86850; 86900; 86901; 87086; 96361; 96365; 96366; 96375; 96376; 99285-25; A9270; J0692; J1170; J1885; J2060; J2405; J7030; Q9967

== ENCOUNTER 2023-07-04 15:12 | Emergency (ER) | payer OTHER ==
[~2023-07-04] VITALS: Ht 172.7 cm; Wt 76.7 kg
[~2023-07-04 15:12] MED LIST changes: +LIDO700A20 TOP
[2023-07-04 16:11] LABS: Hematocrit 35.8 % (33.0-51.0); Hemoglobin 11.8 g/dL (11.5-16.0); Mean Corpuscular HGB 27.4 pg (26.0-34.0); Mean Corpuscular Volume 83 fL (80-100); Mean Platelet Volume 10.4 fL (9.1-12.4); Platelet Count 446 K/mm3 (150-400); RDW Coefficient Variation 14.5 % (11.7-14.2); RDW Standard Deviation 43.8 fL (35.1-46.3); White Blood Cell Count 13.52 K/mm3 (4.00-11.30)
[2023-07-04 16:36] LABS: BASOPHILS PERCENT MAN 0 % (0-2); EOSINOPHILS ABSOLUTE MAN 0.27 K/mm3 (0.00-0.68); EOSINOPHILS PERCENT MAN 2 % (0-6); LYMPHOCYTES % ATYPICAL MANUAL 3 % (0-0); LYMPHOCYTES ABSOLUTE MAN 6.48 K/mm3 (0.84-5.20); LYMPHOCYTES PERCENT MAN 45 % (21-46); MONOCYTES PERCENT MAN 3 % (4-13); NEUTROPHILS ABSOLUTE MAN 6.35 K/mm3 (1.96-9.15); SEG NEUTROPHILS PERCENT MAN 47 % (41-73); TOTAL CELLS COUNTED 100
[2023-07-04 16:37] LABS: Albumin, Blood 3.8 g/dL (3.4-5.0); Albumin/Globulin Ratio 1.1 (0.8-1.8); Bilirubin, Total 0.2 mg/dL (0.1-1.0); Bun/Creatinine Ratio 15.4 (12.0-20.0); Calcium, Blood 8.9 mg/dL (8.5-10.1); Creatinine, Blood 0.65 mg/dL (0.40-1.00); Globulin, Blood 3.5 g/dL (2.2-4.0); Potassium, Blood 4.5 mmol/L (3.5-5.5); Total Protein, Blood 7.3 g/dL (6.4-8.2)
[2023-07-04 19:15] VITALS: BP 127/72
[2023-07-04 20:58] LABS: Source, Urine Clean Catch
[2023-07-04 21:01] LABS: Appearance, Urine Clear (Clear); Bilirubin, Urine Neg (Neg); Blood, Urine 2+ (Neg); Color, Urine Yellow (P-Yellow); Glucose Qualitative, Urine Neg (Neg); Ketones, Urine Neg (Neg); Leukocyte Esterase, Urine 2+ (Neg); Nitrite, Urine Neg (Neg); Protein, Urine 1+ (Neg); Urobilinogen, Urine NORM (Normal)
[2023-07-04 21:13] LABS: Bacteria Many /hpf; Hyaline Casts 0-2 /lpf (0-2); Mucus Light (0-Heavy); Squamous Epithelial Cells Mod /hpf (Few); Transitional Epithelial Cells Few /hpf (0-Rare); White Blood Cells, Urine 25-50 /hpf (0-5)
[2023-07-04] MEDS ORDERED: METR500 PO (21:41)
[2023-07-04] MEDS ORDERED: CIPR500 PO (21:41)
== END 2023-07-04 22:17 | disposition home or self-care (01) ==
LOC: ER 15:12
PROVIDERS: Emergency Medicine; Physician Assistant
DX: N12 Tubulo-interstitial nephritis, not specified as acute or chronic (principal); D25.9 Leiomyoma of uterus, unspecified; Z88.8 Allergy status to other drugs, medicaments and biological substances; F17.200 Nicotine dependence, unspecified, uncomplicated
CPT/HCPCS: 74177; 80053; 81001; 85025; 87086; 96365; 96375; 96376; 99284-25; J0696; J1885; J2270; Q9967

== ENCOUNTER 2023-08-29 14:10 | Emergency (ER) | payer OTHER ==
[~2023-08-29] VITALS: Ht 172.7 cm; Wt 72.6 kg
[~2023-08-29 14:10] MED LIST changes: +CIPR500 PO; +METR500 PO
[2023-08-29 14:27] VITALS: BP 125/77
== END 2023-08-29 15:22 | disposition home or self-care (01) ==
LOC: ER 14:10
DX: Z76.0 Encounter for issue of repeat prescription (principal); F17.200 Nicotine dependence, unspecified, uncomplicated; Z79.891 Long term (current) use of opiate analgesic; Z88.5 Allergy status to narcotic agent; Z88.8 Allergy status to other drugs, medicaments and biological substances
CPT/HCPCS: 99281; A9270

== ENCOUNTER 2023-11-23 10:32 | Day surgery (SDC) | payer OTHER ==
[~2023-11-23] VITALS: Ht 172.7 cm; Wt 75.7 kg
[~2023-11-23 10:32] MED LIST changes: +Lactated Ringer's 1,000 ML IV ONE; +Ropivacaine 0.5% HCl/Pf 5 MG/ML 20ML VIAL ONE
[2023-11-23] MEDS ORDERED: CeFAZolin Sodium 2,000 MG VIAL ONE (11:29)
[2023-11-23] MEDS ORDERED: NS 50 ML IV ONE (11:30)
[2023-11-23] MEDS ORDERED: METH10 PO (11:37)
[2023-11-23] MEDS ORDERED: Methadone S5 MG/5 ML PO (11:42)
[2023-11-23] MEDS ORDERED: propofoL 60 ML IV ONE (11:45)
[2023-11-23] MEDS ORDERED: FentaNYL Citrate 50 MCG/ML 2 ML Injection ONE ×2 (11:46→13:50)
[2023-11-23] MEDS ORDERED: Midazolam HCl 1MG / ML 2ML Vial ONE (11:46)
[2023-11-23] MEDS ORDERED: Lactated Ringer's 1,000 ML IV ONE ×2 (12:01→13:45)
--- NOTE | 2023-11-23 12:06 | NUR ---
11/23/23 [facility] NOSE PIERCINGS IN PLACE AND PT STATES IT IS VERY DIFFICULT TO REMOVE THEM, PER DR LIRA OK TO PROCEED. PIERCINGS COVERED WITH TAPE. DR LIRA NOTIFIED THAT PATIENT TOOK HER ORAL SOLUTION OF METHADONE THIS AM AT 0600.
[2023-11-23] MEDS ORDERED: Lidocaine HCl 2% 20 ML MDV INJ ONE (12:21)
[2023-11-23] MEDS ORDERED: EPINEPhrine HCl 1 MG/ML 1ML Amp XX ONE (12:21)
[2023-11-23] MEDS ORDERED: Ropivacaine 0.5% HCl/Pf 5 MG/ML 20ML VIAL INJ ONE (12:21)
--- NOTE | 2023-11-23 12:29 | NUR ---
11/23/23 1229 Kirit Harding ROPIVACAINE 0.5% 20 ML MIXED & VERIFIED W/ EPI 0.1ML (1MG/ML) TO MAKE ROPIVACAINE 0.5% 1:200,000 FOR INJECTION AT OPSITE BY DR FERNANDO.
[2023-11-23] MEDS ORDERED: ePHEDrine Sulfate 50 MG/ML 1ML Injection ONE (12:33)
[2023-11-23] MEDS ORDERED: Ketorolac Tromethamine 30mg Vial ONE (13:37)
[2023-11-23] MEDS ORDERED: HYDROmorphone HCl/Pf 1MG SYR ONE (14:01)
[2023-11-23] MEDS ORDERED: Lidocaine 1%-Epineph 1:100000 20 ML MDV ONE (14:24)
[2023-11-23 15:17] VITALS: BP 126/71
--- NOTE | 2023-11-23 15:24 | NUR ---
11/23/23 1524 Jadon Crowley PT INITIALLY UNABLE TO VERBALIZE PAIN SCALE IN PACU. SHE WAS WRITHING, SCREAMING, AND CRYING. FLACC 10/10. B/P OCCINACURATE ON VSS AT THIS TIME. PT REPORTED 7/10 PAIN FOLLOWING MEDICATION WITH DILAUDID, FENTANYL, AND TORADOL. PT STILL GRIMACING, OCCASIONALLY SOBBING. DR. LIRA WAS CONTACTED AND PERFORMED BLOCK IN PACU. PT REPORTED 1/10 PAIN FOLLOWING BLOCK. NO MORE OPIATE PAIN MEDICATIONS WERE GIVEN, PER DR. LIRA ORDERS.
--- NOTE | 2023-11-23 16:23 | NUR ---
11/23/23 1623 Maxine Martin WHILE PATIENT WAS IN STEP DOWN SHE STATED THAT HER PAIN WAS A 1/10. PATIENT WAS JOKING WITH STAFF MEMBERS IN THE STEP DOWN PHASE BUT AFTER A PHONE CALL WITH HER SON SHE APPEARED TO GET UPSET BRIEFLY BUT LATER CALMED DOWN. NURSE SANTOS CALLED OFFICE AND TALKED TO HIS MA. DR. FERNANDO OFFICE WILL WRITE A PRESCIPTION FOR CRUTCHES. PATIENT STATED SHE WILL MARINE STEWARD THE PRESCIPTION AT HIS OFFICE TO BEFORE THEY CLOSE AT 1700.
== END 2023-11-23 16:05 | disposition home or self-care (01) ==
LOC: ORSCSDS 10:32
PROVIDERS: Podiatrist Foot & Ankle Surgery
PROC: 0QSR04Z Reposition Left Toe Phalanx with Internal Fixation Device, Open Approach (ICD-10-PCS; principal; 2023-11-23 12:00)
PROC: 0QSP04Z Reposition Left Metatarsal with Internal Fixation Device, Open Approach (ICD-10-PCS; principal; 2023-11-23 12:00)
PROC: 0QBP0ZZ Excision of Left Metatarsal, Open Approach (ICD-10-PCS; principal; 2023-11-23 12:00)
DX: M20.12 Hallux valgus (acquired), left foot (principal); M77.42 Metatarsalgia, left foot; Z87.891 Personal history of nicotine dependence; Z79.899 Other long term (current) drug therapy
CPT/HCPCS: C1713; C1769; J0171; J0690; J1170; J1885; J2250; J2704; J2795; J3010; J7120

== ENCOUNTER 2024-03-20 09:47 | Day surgery (SDC) | payer OTHER ==
[~2024-03-20] VITALS: Ht 172.7 cm; Wt 79.1 kg
[2024-03-20] VITALS (17 sets, daily range): BP systolic 110–145; BP diastolic 60–96
[~2024-03-20 09:47] MED LIST changes: +ACET325 PO; +CeFAZolin Sodium 2,000 MG VIAL ONE; +CeFAZolin Sodium 2,000 MG in NS 100 ML IV SCH; +Cefpodoxime Pr100 MG PO; -Lactated Ringer's 1,000 ML IV ONE; +Lactated Ringer's 1,000 ML IV SCH; +METH10 PO; +Methadone S5 MG/5 ML PO; +NS 100 ML IV ONE; -Ropivacaine 0.5% HCl/Pf 5 MG/ML 20ML VIAL ONE; +TAMS.4ER PO; +VISBIOME 112.51 EACH PO
--- NOTE | 2024-03-20 10:13 | NUR ---
PT TO SDS FOR TOTAL LAPAROSCOPIC HYSTERECTOMY WITH ROBOTIC ASSIST. CHART REVIEWED. PLAN OF CARE DISCUSSED, QUESTIONS ANSWERED.
[2024-03-20] MEDS ORDERED: METH40 PO (10:21)
[2024-03-20] MEDS ORDERED: Midazolam HCl 1MG / ML 2ML Vial IV ONE (11:20)
[2024-03-20] MEDS ORDERED: FentaNYL Citrate 50 MCG/ML 2 ML Injection IV ONE (11:20)
[2024-03-20] MEDS ORDERED: Bupivacaine 0.5% HCl 5 MG/ML 30MLVIAL ONE (11:26)
[2024-03-20] MEDS ORDERED: propofoL 20 ML IV ONE (12:04)
[2024-03-20] MEDS ORDERED: FentaNYL Citrate 50 MCG/ML 2 ML Injection ONE ×3 (12:04→16:04)
[2024-03-20] MEDS ORDERED: Ketorolac Tromethamine 30mg Vial ONE (12:13)
[2024-03-20] MEDS ORDERED: Ondansetron HCl 2 MG / ML 2ML Vial ONE (12:13)
[2024-03-20] MEDS ORDERED: Dexamethasone Sod Phos 10 MG/ML 1ML VIAL ONE (12:13)
[2024-03-20] MEDS ORDERED: Phenylephrine HCl 100 MCG/ML-NS 10MLSYR (1MG/10ML) ONE (12:23)
[2024-03-20] MEDS ORDERED: Sugammadex Sodium 200 MG/2ML SDV (100 MG/ML) ONE (15:01)
[2024-03-20] MEDS ORDERED: CeFAZolin Sodium 2,000 MG in NS 100 ML IV ONE (15:35)
[2024-03-20] MEDS ORDERED: CeFAZolin Sodium 2,000 MG VIAL ONE ×2 (15:36→21:35)
[2024-03-20] MEDS ORDERED: Ropivacaine 0.5% HCL/PF 5 MG/ML 30ML Vial ONE (15:41)
[2024-03-20] MEDS ORDERED: Simethicone 80 MG Chew PO PRN (17:20)
[2024-03-20] MEDS ORDERED: Promethazine HCl 12.5 MG Supp PR PRN (17:20)
[2024-03-20] MEDS ORDERED: FentaNYL Citrate 50 MCG/ML 2 ML Injection IV PRN (17:20)
[2024-03-20] MEDS ORDERED: Promethazine HCl 25 MG Tab PO PRN (17:20)
[2024-03-20] MEDS ORDERED: OxyCODONE 5 mg/Acetamin 325 mg TABLET PO PRN ×2 (17:20→19:35)
[2024-03-20] MEDS ORDERED: Lactated Ringer's 1,000 ML IV SCH (17:20)
[2024-03-20] MEDS ORDERED: HYDROmorphone HCl/Pf 1MG SYR ONE (17:21)
[2024-03-20] MEDS ORDERED: Prochlorperazine Edisylate 10 mg Vial ONE (17:22)
[2024-03-20] MEDS ORDERED: Ondansetron HCl 2 MG / ML 2ML Vial IV PRN (17:25)
[2024-03-20] MEDS ORDERED: Ondansetron 4 MG TAB PO PRN (17:25)
[2024-03-20] MEDS ORDERED: Droperidol 5 mg/2 ml Vial ONE (17:31)
[2024-03-20] MEDS ORDERED: Ketorolac Tromethamine 30mg Vial IV PRN (17:45)
--- NOTE | 2024-03-20 18:49 | NUR ---
SHIFT SUMMARY PT ARRIVED TO THE ROOM AT 1800 FROM PACU. UPON ARRIVAL SHE WAS SHAKING AND REPORTED HAVING SEVER LOWER ABD/PELVIC PAIN. VSS. PT NOW RESTING QUIETLY WITH EYES CLOSED. NO GRIMACING, WINCING, MOANING OR OTHER SIGNS OF PAIN WHILE SLEEPING.
[2024-03-20] MEDS ORDERED: NS 100 ML IV ONE (21:35)
[2024-03-20] MEDS ORDERED: CeFAZolin Sodium 2,000 MG in NS 100 ML IV SCH (22:00)
[2024-03-21] MEDS ORDERED: CeFAZolin Sodium 2,000 MG VIAL ONE (04:11)
[2024-03-21] MEDS ORDERED: NS 100 ML IV ONE (04:12)
[2024-03-21 04:33] VITALS: BP 128/82
[2024-03-21 05:11] LABS: BASOPHILS ABSOLUTE AUTO 0.01 K/mm3 (0.00-0.23); BASOPHILS PERCENT AUTO 0 % (0-2); EOSINOPHILS PERCENT AUTO 0 % (0-6); Hematocrit 32.9 % (33.0-51.0); Hemoglobin 11.3 g/dL (11.5-16.0); IMMATURE GRAN ABSOLUTE AUTO 0.05 K/mm3 (0.00-0.10); IMMATURE GRAN PERCENT AUTO 0 % (0-1); LYMPHOCYTES ABSOLUTE AUTO 1.03 K/mm3 (0.84-5.20); LYMPHOCYTES PERCENT AUTO 9 % (21-46); MONOCYTES ABSOLUTE AUTO 0.52 K/mm3 (0.16-1.47); MONOCYTES PERCENT AUTO 4 % (4-13); Mean Corpuscular HGB 29.4 pg (26.0-34.0); Mean Corpuscular HGB Conc 34.3 g/dL (31.5-36.5); Mean Corpuscular Volume 86 fL (80-100); Mean Platelet Volume 11.2 fL (9.1-12.4); NEUTROPHILS ABSOLUTE AUTO 10.13 K/mm3 (1.96-9.15); NEUTROPHILS PERCENT AUTO 86 % (41-73); Platelet Count 259 K/mm3 (150-400); RDW Coefficient Variation 13.2 % (11.7-14.2); RDW Standard Deviation 41.1 fL (35.1-46.3); Red Blood Cell Count 3.85 M/mm3 (3.80-5.20); White Blood Cell Count 11.74 K/mm3 (4.00-11.30)
--- NOTE | 2024-03-21 05:28 | NUR ---
SHIFT SUMMARY POD 1 LAP HYSTER PT SLEPT T/O THE NIGHT. PAIN MANAGED PER EMAR. TOLERATING SMALL AMOUNTS OF FLUIDS. MINIMAL BLEEDING ON MILTON PAD. PT DENIES TO GET OOB, HAS NOT HAD ESPINOZA TAKEN OUT. VSS. NO OTHER CONCERNS AT THIS TIME, CALL LIGHT WITHIN REACH
[2024-03-21] MEDS ORDERED: Methadone HCL 10 MG TAB PO SCH (07:00)
[2024-03-21 07:56] VITALS: BP 128/74
[2024-03-21] MEDS ORDERED: Percocet 5-3251 EACH PO (10:27)
[2024-03-21] MEDS ORDERED: PROMETHAZINE12.5 M1 PO (10:27)
[2024-03-21] MEDS ORDERED: SIME80CH PO (10:28)
--- NOTE | 2024-03-21 11:04 | NUR ---
DISCHARGE PT WAS PROVIDED WITH WRITTEN AND VERBAL DISCHARGE INTRUCTIONS, PT VERBALIZED UNDERSTANDING. PT WAS ABLE TO VOID PRIOR TO DISCHARGE, SHE DECLINED BLADDER SCAN TO DETERMINE POST-VOID RESIDUAL. PT PROVIDED EDUCATION REGARDING SYMPTOMS OF URINARY RETENTION, SHE VERBALIZED UNDERSTANDING. PT DECLINED TO ALLOW STAFF TO CHECK HER VS WITHIN 1 HOUR OF DISCHARGE PER HOSPITAL POLICY. PT ABLE TO TOLERATE PO, PAIN MANAGED, ABLE TO AMBULATE AND VOID PRIOR TO DISCHARGE. PT STATED SHE HAS HER PRESCRIPTIONS AT HOME. PT ASSISTED OUT IN W/C AT APPROXIMATELY 1035 BY KADEEM RUSSELL.
== END 2024-03-21 10:36 | disposition home or self-care (01) ==
LOC: ORSCMMR 09:47 → ORD 12:15 → ORSCMMR 13:00 → ORD 13:00 → SURS 18:48 → ORSCMMR 03-21 10:36
PROVIDERS: Obstetrics & Gynecology
PROC: 0DNU4ZZ Release Omentum, Percutaneous Endoscopic Approach (ICD-10-PCS; principal; 2024-03-20 12:15)
PROC: 0UB74ZZ Excision of Bilateral Fallopian Tubes, Percutaneous Endoscopic Approach (ICD-10-PCS; principal; 2024-03-20 12:15)
PROC: 0UT94ZZ Resection of Uterus, Percutaneous Endoscopic Approach (ICD-10-PCS; principal; 2024-03-20 12:15)
PROC: 0UNF4ZZ Release Cul-de-sac, Percutaneous Endoscopic Approach (ICD-10-PCS; principal; 2024-03-20 12:15)
DX: R10.2 Pelvic and perineal pain (principal); N80.352 Endometriosis of the left pelvic sidewall, unspecified depth; N80.329 Endometriosis of the posterior cul-de-sac, unspecified depth; N92.1 Excessive and frequent menstruation with irregular cycle; D25.9 Leiomyoma of uterus, unspecified; N80.03 Adenomyosis of the uterus; D50.0 Iron deficiency anemia secondary to blood loss (chronic); N94.10 Unspecified dyspareunia; F32.A Depression, unspecified; F41.9 Anxiety disorder, unspecified; Z79.631 Long term (current) use of antimetabolite agent; Z87.891 Personal history of nicotine dependence
CPT/HCPCS: 36415; 85025; 86850; 86900; 86901; 88307; 94760; A9270; J0690; J0780; J1100; J1170; J1790; J1885; J2250; J2371; J2405; J2704; J2795; J3010; J7120

== ENCOUNTER 2024-08-01 11:16 | Day surgery (SDC) | payer OTHER ==
[~2024-08-01] VITALS: Ht 172.7 cm; Wt 83.9 kg
[~2024-08-01 11:16] MED LIST changes: -CeFAZolin Sodium 2,000 MG VIAL ONE; -CeFAZolin Sodium 2,000 MG in NS 100 ML IV SCH; -Lactated Ringer's 1,000 ML IV SCH; +Lidocaine HCl 2% 10 ML SDA ONE; +METH40 PO; +Methadone S5 MG/5 ML; +Methadone10 MG/5 ML PO; -NS 100 ML IV ONE; +PROMETHAZINE12.5 M1 PO; +Ropivacaine 0.5% HCL/PF 5 MG/ML 30ML Vial ONE; +SIME80CH PO; +TOPI25 PO
[2024-08-01] MEDS ORDERED: Midazolam HCl 1MG / ML 2ML Vial ONE (11:40)
[2024-08-01] MEDS ORDERED: Lactated Ringer's 1,000 ML IV ONE ×2 (11:42→12:10)
[2024-08-01] MEDS ORDERED: CeFAZolin Sodium 2,000 MG VIAL ONE (12:31)
[2024-08-01] MEDS ORDERED: propofoL 20 ML IV ONE (13:04)
[2024-08-01] MEDS ORDERED: FentaNYL Citrate 50 MCG/ML 2 ML Injection ONE ×2 (13:04→13:42)
[2024-08-01] MEDS ORDERED: Dexamethasone Sod Phos 10 MG/ML 1ML VIAL ONE (13:10)
[2024-08-01] MEDS ORDERED: Ondansetron HCl 2 MG / ML 2ML Vial ONE ×2 (13:10→14:00)
[2024-08-01] MEDS ORDERED: Ketorolac Tromethamine 30mg Vial ONE (13:11)
--- NOTE | 2024-08-01 13:14 | NUR ---
08/01/24 1314 Racquel Murcia 30ML OF ROPIVACAINE 0.5% MIXED AND VERIFIED WITH 0.15ML OF EPI (1MG/ML) TO MAKE ROPIVACAINE 0.5% WTIH EPI 1:200,000 FOR INJECTION AT THE OPSITE BY DR FERNANDO.
[2024-08-01] MEDS ORDERED: EPINEPhrine HCl 1 MG/ML 1ML Amp XX ONE ×2 (13:23)
--- NOTE | 2024-08-01 13:59 | NUR ---
08/01/24 1359 Elizabeth Rubio PATIENT REPORTS NO IMPROVEMENT IN 9/10 R FOOT PAIN AFTER INITIAL DOSE OF FENTANYL 25MCG IV GIVEN AT 1350. 2ND DOSE OF FENTANYL GIVEN BUT 50MCG FOR A TOTAL OF 75MCG. WILL MONITOR FOR PAIN RELIEF.
[2024-08-01] MEDS ORDERED: OxyCODONE 7.5 mg/Acetam 325 mg TABLET ONE (14:32)
[2024-08-01 14:37] VITALS: BP 107/60
--- NOTE | 2024-08-01 15:22 | NUR ---
08/01/24 1522 Maxine Martin PT STATED HER PAIN WAS A 5/10 IN STEP DOWN AND THAT IT WAS TOLERABLE AND SHE SAID "IM JUST READY TO GO HOME AND REST." PT IS EATING AND DRINKING P/O FLUIDS W/O DIFFICULTY.
== END 2024-08-01 15:08 | disposition home or self-care (01) ==
LOC: ORSCSDS 11:16
PROVIDERS: Podiatrist Foot & Ankle Surgery
PROC: 0QSQ04Z Reposition Right Toe Phalanx with Internal Fixation Device, Open Approach (ICD-10-PCS; principal; 2024-08-01 12:45)
PROC: 0SGM04Z Fusion of Right Metatarsal-Phalangeal Joint with Internal Fixation Device, Open Approach (ICD-10-PCS; principal; 2024-08-01 12:45)
DX: M20.11 Hallux valgus (acquired), right foot (principal); M96.89 Other intraoperative and postprocedural complications and disorders of the musculoskeletal system; Z79.899 Other long term (current) drug therapy
CPT/HCPCS: A9270; C1713; J0171; J0690; J1100; J1885; J2003; J2250; J2405; J2704; J2795; J3010; J7120

== ENCOUNTER → 2024-11-28 | Outpatient (CLI) | payer OTHER ==
[~2024-11-28] MED LIST changes: -Lidocaine HCl 2% 10 ML SDA ONE; -Ropivacaine 0.5% HCL/PF 5 MG/ML 30ML Vial ONE
== END ==
LOC: LAB 12:25 → LAB SHORT 12:25
DX: R30.0 Dysuria (principal)
CPT/HCPCS: 87086

== ENCOUNTER 2025-07-24 12:52 | Emergency (ER) | payer OTHER ==
[~2025-07-24] VITALS: Ht 172.7 cm; Wt 71.7 kg
[2025-07-24 13:47] VITALS: BP 125/79
== END 2025-07-24 14:36 | disposition home or self-care (01) ==
LOC: ER 12:52
DX: F11.91 Opioid use, unspecified, in remission (principal); Z76.0 Encounter for issue of repeat prescription; F17.200 Nicotine dependence, unspecified, uncomplicated
CPT/HCPCS: 99281; A9270